=== PATIENT | female | born 1965 | race Asian ===

== ENCOUNTER 2016-11-23 10:50 | Emergency (ER) | payer OTHER ==
[~2016-11-23] VITALS: Wt 65.0 kg
[~2016-11-23 10:50] MED LIST: FLUC150T17 PO; NITR-58 PO
[2016-11-23 12:57] LABS: URINE BLOOD (Dip) POC Trace-intact (NEGATIVE)
[2016-11-23] MEDS ORDERED: NITR-58 PO (13:23)
[2016-11-23] MEDS ORDERED: MICO45CR7 VAGINAL (13:23)
[2016-11-23] MEDS ORDERED: LIDOCAINE 1% (MDV) 20 ML INJ SC ONE (13:30)
[2016-11-23] MEDS ORDERED: CIPR500T4 PO (13:30)
[2016-11-23] MEDS ORDERED: CEFTRIAXONE 1 GM INJ IM ONE (13:30)
[2016-11-23] MEDS ORDERED: AZITHROMYCIN 250 MG TAB PO ONE (14:00)
--- NOTE | 2016-11-23 14:30 | ERD ---
DATE OF SERVICE: 11/23/2016 HISTORY OF PRESENT ILLNESS: The patient is a 51-year-old female coming in complaining of dysuria fo r 1 week. Patient has no nausea, vomiting, no back pain, no fevers. She is also complaining about itchy vagina. She states she has had no vomiting, mild nausea. She states that she was treated in April for possible STD; however, her STD screening came back negative. She is requesting pain medica tion she received previously. PAST MEDICAL HISTORY: Denies any other medical problems. ALLERGIES TO MEDICATIONS: DENIES. PAST SURGICAL HISTORY: Denies. SOCIAL HISTORY: Denies. REVIEW OF SYSTEMS: A 12-point review of systems was done. Refer to HPI for positives, all other sy stems negative. PHYSICAL EXAMINATION: VITAL SIGNS: Temperature is 97.9, pulse 92, blood pressure is 98/58, respiratory rate 20, O2 satura tion 99% on room air. Pain intensity 6/10. GENERAL: The patient is well-appearing, well-nourished, no acute distress. HEENT: Atraumatic. Conjunctivae are pink. Pupils equal, round, and reactive to light. There is no s cleral icterus. Tympanic membranes clear bilaterally. Oropharynx clear. No nystagmus or photophobia . CHEST: Clear to auscultation bilaterally. There are no rales, wheezes or rhonchi. HEART: Regular rate and rhythm. No murmurs, clicks, rubs or gallops. No S3 or S4. ABDOMEN: Soft, nontender and nondistended. Good bowel sounds. No rebound or guarding. No gross monae tonitis. No gross organomegaly or masses. No Moralez sign or McBurney point tenderness. BACK: No midline or flank tenderness. SKIN: There is no apparent rash or petechia. The skin is warm and dry. EMERGENCY ROOM COURSE: The patient had a urine dip checked in the ER. Patient's urine showed 1+ le ukocytes with trace blood. Patient's urine was sent for culture. Patient received IM injection of Rocephin and Zithromax per her request. She states she has no new sexual partners and will discharg e and cover for urinary tract infection. The patient given azithromycin 1 gram and Rocephin. DIAGNOSES: 1. Dysuria. 2. Vaginitis. MEDICAL DECISION MAKING: I have low suspicion for pelvic emergency. I have low suspicion for an STD as the patient has not had intercourse since her previous STD screening, which was negative. Howev er, the patient is requesting medication as it seemed to help her symptoms last time and I will in a ddition right for yeast infection medication and antibiotics to cover for possible urinary tract inf ection. DISCHARGE: The patient is discharged stable. The patient given a prescription for miconazole and C ipro. All questions answered at time of discharge. Discharge summary given at the time of departur e. Patient understood and complied with plan. Dictated By: EZEKIEL SALOMON for JIMMIE [facility]/NTS Conf#: [id number] DID#: [id number]
== END 2016-11-23 13:49 | disposition home or self-care (01) ==
LOC: FTE 10:50
DX: R30.0 Dysuria (principal); N76.0 Acute vaginitis
CPT/HCPCS: 81003; 87086; 96372; J0696; Z7502; Z7610